=== PATIENT | female | born 1975 | race African-American/Black ===

== ENCOUNTER 2019-06-22 06:17 | Emergency (ER) | payer MEDICAID ==
[~2019-06-22] VITALS: Ht 160 cm; Wt 54.4 kg
[2019-06-22] MEDS ORDERED: SODIUM CHLORIDE 0.9% 1,000 ML IV ONE (07:30)
[2019-06-22] MEDS ORDERED: diphenhdrAMINE HCL 50 MG/1 ML VL IV ONE (07:30)
[2019-06-22] MEDS ORDERED: METOCLOPRAMIDE HCL 5MG/ml INJ 2ml VIAL IV ONE (07:30)
[2019-06-22] MEDS ORDERED: KETOROLAC TROMETH 30 MG/ML 1ML VIAL IV ONE (07:30)
[2019-06-22 08:32] VITALS: BP 135/84
== END 2019-06-22 08:42 | disposition home or self-care (01) ==
LOC: ER 06:17
DX: G43.909 Migraine, unspecified, not intractable, without status migrainosus (principal); F17.210 Nicotine dependence, cigarettes, uncomplicated; I10 Essential (primary) hypertension
CPT/HCPCS: 96361; 96374; 96375; 99283; J1200; J1885; J2765; J7030

== ENCOUNTER 2020-06-08 01:13 | Emergency (ER) | payer MEDICAID ==
[~2020-06-08] VITALS: Ht 160 cm; Wt 67.1 kg
[2020-06-08] MEDS ORDERED: ASPirin 81 mg TAB PO ONE (01:45)
[2020-06-08] MEDS ORDERED: cloNIDine HCL 0.1 MG TAB PO ONE (01:45)
[2020-06-08] MEDS ORDERED: LORazepam 0.5 MG TAB PO ONE (01:45)
[2020-06-08 03:29] LABS: Basophils # (auto) 0.1 10 ^3/uL (0-0.2); Basophils % (auto) 0.7 % (0.0-2.0); Eosinophils # (auto) 0.1 10 ^3/uL (0-0.8); Eosinophils % (auto) 1.5 % (0.0-7.0); Hematocrit 38.3 % (36.0-46.0); Hemoglobin 12.6 g/dL (12.2-16.2); Lymphocytes # (auto) 3.5 10 ^3/uL (0.4-5.4); Lymphocytes % (auto) 37.6 % (10.0-50.0); Mean Corpuscular Hemoglobin 30.6 pg (28.0-32.0); Mean Corpuscular Hgb Conc. 32.8 g/dL (32.0-36.0); Mean Corpuscular Volume 93.2 fL (80.0-100.0); Monocytes # (auto) 0.5 10 ^3/uL (0-1.3); Monocytes % (auto) 5.3 % (0.0-12.0); Neutrophils # (auto) 5.1 10 ^3/uL (1.6-8.6); Neutrophils % (auto) 54.9 % (37.0-80.0); Nucleated Red Blood Cells % 0.1 %; Platelet Count (auto) 305 10^3/uL (140-450); Red Blood Cells 4.11 10^6/uL (4.0-5.20); Red Cell Distribution Width 14.1 % (11.8-14.3); White Blood Cell 9.3 10^3/uL (4.4-10.8)
[2020-06-08 03:47] LABS: Albumin 3.4 g/dL (3.4-5.0); Anion Gap 9 (5-15); BUN/Creatinine Ratio 20.9; Blood Urea Nitrogen 14 mg/dL (7-18); Calcium 7.9 mg/dL (8.5-10.1); Carbon Dioxide 21 mmol/L (21-32); Chloride 112 mmol/L (98-107); GFR African American 124 mL/min; GFR Non-African American 102 mL/min; Glucose 97 mg/dL (74-106); Magnesium 2.2 mg/dL (1.6-2.6); Potassium 3.4 mmol/L (3.5-5.1); Sodium 142 mmol/L (136-145)
[2020-06-08 03:52] LABS: Alanine Aminotransferase 13 U/L (13-56); Alkaline Phosphatase 66 U/L (45-117); Aspartate Aminotransferase 9 U/L (15-37); Bilirubin, Total 0.2 mg/dL (0.2-1.0); INR 0.98 (0.9-1.15); Partial Thromboplastin Time 27.1 sec (23.0-31.2); Total Protein 6.9 g/dL (6.4-8.2)
[2020-06-08 05:23] VITALS: BP 137/83
== END 2020-06-08 06:11 | disposition home or self-care (01) ==
LOC: ER 01:15
DX: R07.89 Other chest pain (principal); I10 Essential (primary) hypertension; F17.210 Nicotine dependence, cigarettes, uncomplicated; F12.10 Cannabis abuse, uncomplicated; Z98.51 Tubal ligation status
CPT/HCPCS: 36415; 71045; 80053; 83735; 83880; 84484; 85025; 85610; 85730; 93005